=== PATIENT | female | born 1990 | race Caucasian/White ===

== ENCOUNTER 2020-10-07 11:12 | Day surgery (SDC) | payer MEDICAID ==
[2020-10-07] VITALS (12 sets, daily range): BP systolic 106–141; BP diastolic 65–83
[~2020-10-07] VITALS: Ht 177.8 cm; Wt 83.9 kg
[~2020-10-07 11:12] MED LIST: ceFAZolin 2gm in dextrose, iso 50 ML IV ONE; famotidine 20mg tablet PO ONE; ringers solution, lacted 1,000 ML IV SCH
[2020-10-07] MEDS ORDERED: meperidine/PF 25mg/ml syringe IV ONE (12:25)
[2020-10-07 13:15] LABS: BASOPHILS % (AUTO) 0.5 % (0-1); EOSINOPHILS # (AUTO) 0.1 X10'3 (0-0.9); EOSINOPHILS % (AUTO) 0.6 % (0-6); LYMPHOCYTES # (AUTO) 2.5 X10'3 (1.1-4.8); LYMPHOCYTES % (AUTO) 29.5 % (21-51); MEAN CORPUSCULAR HEMOGLOBIN 28.1 PG (27.0-31.0); MEAN CORPUSCULAR HGB CONC 33.8 g/dL (33.0-36.5); MEAN CORPUSCULAR VOLUME 83.2 FL (78-98); MEAN PLATELET VOLUME 7.9 FL (7.4-10.4); MONOCYTES # (AUTO) 0.6 X10'3 (0-0.9); MONOCYTES % (AUTO) 6.9 % (2-12); NEUTROPHILS # (AUTO) 5.4 X10'3 (1.8-7.7); NEUTROPHILS % (AUTO) 62.5 % (42-75); PRE OP HEMATOCRIT 40.4 % (35.0-45.0); PRE OP HEMOGLOBIN 13.6 g/dL (12.0-16.0); PRE OP PLATELET COUNT 297 X10'3 (140-440); RED BLOOD COUNT 4.85 X10'6 (4.20-5.60); RED CELL DISTRIBUTION WIDTH 14.1 % (11.5-14.5)
[2020-10-07 13:29] LABS: ALBUMIN 3.8 G/DL (3.4-5.0); ALBUMIN/GLOBULIN RATIO 1.1 (1.1-1.5); ALKALINE PHOSPHATASE 70 IU/L (46-116); BLOOD UREA NITROGEN 11 MG/DL (7-18); BUN/CREATININE RATIO 15.5 (6.6-38.0); CALCIUM 9.2 MG/DL (8.5-10.1); CHLORIDE 105 MMOL/L (99-107); CREATININE 0.71 MG/DL (0.40-0.90); PRE OP ALT 33 U/L (30-65); PRE OP ANION GAP 8 (8-16); PRE OP AST 20 U/L (10-37); PRE OP BILIRUB, TOTAL 0.4 MG/DL (0.0-1.0); PRE OP GLUCOSE 89 MG/DL (70-104); PRE OP POTASSIUM 3.9 MMOL/L (3.4-5.1); PRE OP SODIUM 141 MMOL/L (135-145); TOTAL CARBON DIOXIDE 28.4 MMOL/L (24-32); TOTAL PROTEIN 7.4 G/DL (6.4-8.2); eGFR > 90 ML/MIN
[2020-10-07] MEDS ORDERED: morphine 2 MG/ML inj. syringe IV PRN (13:40)
[2020-10-07] MEDS ORDERED: proCHLORperazine 10 MG/2 ml inj IV PRN (13:40)
[2020-10-07] MEDS ORDERED: ringers solution, lacted 1,000 ML IV SCH (13:40)
[2020-10-07] MEDS ORDERED: meperidine/PF 25mg/ml syringe IV PRN ×2 (13:40)
[2020-10-07] MEDS ORDERED: ondansetron/PF 4mg/2ml inj IV PRN (13:40)
[2020-10-07] MEDS ORDERED: sevoflurane 250ml liquid IH ONE (14:38)
[2020-10-07] MEDS ORDERED: glycopyrrolate 0.2mg/ml inj ONE (14:38)
[2020-10-07] MEDS ORDERED: fentaNYL/PF 50MCG/1 ML 2ML syringe ONE ×2 (14:39→15:21)
[2020-10-07] MEDS ORDERED: midazolam 1 mg/ML 2ml injection ONE ×2 (14:40→14:57)
--- NOTE | 2020-10-07 16:14 | NUR ---
Received from OR via [facility], accompanied by Anesthesiologist WINNIE and report given by Anesthesiolgist. PT ARRIVED IN PACU, 10L O2 VIA MASK, RIGHT LE ELEVATED ON 2 PILLOWS, CDI, IV IN R. AC 20 G. WITH LR AT 100 ML/HR INFUSING. R. TOES PINK AND WARM WITH POSITIVE SENSATION AND CAP REFILL. VSS. Addendum: 10/07/20 at 1713 by Ana Hallman RN Amended: Links added.
[2020-10-07] MEDS ORDERED: meperidine/PF 25mg/ml syringe ONE (16:15)
[2020-10-07] MEDS ORDERED: LIDOcaine 2% (20mg/ml) 5ml vial ONE (16:27)
[2020-10-07] MEDS ORDERED: ondansetron/PF 4mg/2ml inj ONE (16:27)
[2020-10-07] MEDS ORDERED: propofol inj 20 ML IV ONE (16:27)
[2020-10-07] MEDS ORDERED: dexamethasone sod phosphate 4mg/ml inj. ONE (16:27)
[2020-10-07] MEDS: morphine 4 MG/ML inj SYRINge IV PRN ×2 (16:28→17:30)
[2020-10-07] MEDS: meperidine/PF 25mg/ml syringe IV PRN ×2 (16:29→16:53)
[2020-10-07] MEDS ORDERED: acetaminophen 325mg tablet PO PRN (17:05)
[2020-10-07] MEDS ORDERED: BUPIVAcaine/PF 2.5 mg/ml (0.25%) 30ml vial ONE (18:06)
--- NOTE | 2020-10-07 18:30 | NUR ---
PATIENT VERBALIZED UNDERSTANDING, OPPORTUNITY TO ASK QUESTIONS GIVEN AND PATIENT COMFORTABLE WITH DC. MD ZHOU PRESENT AND OFFERED 2ND NERVE BLOCK. SUPPLIES BEING GATHERED PT. DECLINES\\D NERVE BLOCK STATING, "I THINK I WILL BE OKAY WITHOUT IT. I WANT TO GO HOME" NOTIFIED OF DECLINE. IV TAKEN OUT WITHOUT COMPLICATION. PATIENT HAS MET ALL DC CRITERIA FOR DC HOME. VOID X1 NOTED. I HAVE REVIEWED D/C INSTRUCTIONS WITH PATIENT. TAKEN OUT VIA WHEELCHAIR WHERE PATIENT WAS TAKEN HOME WITH ALL BELONGINGS. FAMILY GAVE PATIENT TRANSPORT HOME. Addendum: 10/07/20 at 1836 by Ana Hallman RN Amended: Links added.
== END 2020-10-07 18:30 | disposition home or self-care (01) ==
LOC: PRE-OP 11:12 → PAS 18:30
PROVIDERS: ATTEND Orthopaedic Surgery
DX: S82.61XA Displaced fracture of lateral malleolus of right fibula, initial encounter for closed fracture (principal); Z20.822 Contact with and (suspected) exposure to COVID-19; Z98.890 Other specified postprocedural states; F12.90 Cannabis use, unspecified, uncomplicated; G89.18 Other acute postprocedural pain; Z79.899 Other long term (current) drug therapy; X58.XXXA Exposure to other specified factors, initial encounter; Y93.89 Activity, other specified; Y92.89 Other specified places as the place of occurrence of the external cause; Y99.8 Other external cause status
CPT/HCPCS: 27792; 36415; 64447; 64450; 76942; 80053; 85025; 87426; C1713; J1100; J2001; J2175; J2250; J2270; J2405; J2704; J3010; J3490; J7120; A4618; A6449; A7000